=== PATIENT | male | born 1965 | race Caucasian/White ===

== ENCOUNTER 2017-12-07 15:04 | Emergency (ER) | payer BC ==
[2017-12-07] MEDS ORDERED: Sodium Chloride 0.9% 1,000 ML IV ONE (15:29)
--- NOTE | 2017-12-07 15:39 | EDM.PDOC ---
ED HPI GENERAL MEDICAL PROBLEM - General Chief Complaint: ENT Problem Stated Complaint: THROAT HURTS Time Seen by Provider: 12/07/17 15:13 Source of Information: Reports: Patient History Limitations: Reports: No Limitations - History of Present Illness INITIAL COMMENTS - FREE TEXT/NARRATIVE: HISTORY AND PHYSICAL: History of present illness: Patient is a 52-year-old male who presents to the emergency room with complaints of throat pain. He states he had some pain to the back of his throat approximately one week ago and [facility]. At that time they did a strep screening which was negative, he received a prescription for a steroid and cough syrup. Since that time he has increased pain, swelling and difficulty eating. He believes he has an upset stomach from the medications he's been receiving as he has had some nausea and diarrhea. Denies fever, chills, abdominal pain. Over the past week he has had increased swelling and exudate from the left side of his throat. He states he has not been able to eat due to the pain and nausea. Believes he has lost "17 pounds" over the past week. Complains of fatigue and increased sleeping throughout the day. History of smoking (current smoker) and alcohol use. Review of systems: As per history of present illness and below otherwise all systems reviewed and negative. Past medical history: As per history of present illness and as reviewed below otherwise noncontributory. Surgical history: As per history of present illness and as reviewed below otherwise noncontributory. Social history: No reported history of drug or alcohol abuse. Family history: As per history of present illness and as reviewed below otherwise noncontributory. Physical exam: General: Well-developed and well-nourished 52-year-old male. Alert and oriented. Nontoxic appearing and in no acute distress. HEENT: Atraumatic, normocephalic, pupils reactive, negative for conjunctival pallor or scleral icterus, mucous membranes moist, moderate amount of exudate / granuloma tissue noted to the left side of the posterior oropharynx, no lymphadenopathy noted to the left cervical chain, nontender, trachea midline. Lungs: Clear to auscultation, breath sounds equal bilaterally, chest nontender. Heart: S1S2, regular, negative for clicks, rubs, or JVD. Abdomen: Soft, nondistended, nontender. Negative for masses or hepatosplenomegaly. Negative for costovertebral tenderness. Pelvis: Stable nontender. Genitourinary: Deferred. Rectal: Deferred. Extremities: Atraumatic, negative for cords or calf pain. Neurovascular unremarkable. Neuro: Awake, alert, oriented. Cranial nerves II through XII unremarkable. Cerebellum unremarkable. Motor and sensory unremarkable throughout. Exam nonfocal. The CT shows an enlarged heterogeneous left palatine tonsil without a discrete drainable tonsillar or peritonsillar fluid collection seen at this time. Enlarged left level [address] contact Dr[address] Julien to consult him on this case. He came down to talk with the patient. The patient does feel he can swallow pills effectively at home, he had taken 1 tab of a left over pill of Augmentin. He has not tried prescribed antibiotics as outpatient he would like to try this prior to being admitted. Dr. Julien supports this. Risks were explained to the patient and he is aware. Rocephin will be given here IV. Clindamycin prescribed for home. Clark 5/325mg (Disp #20) for home use. ENT referal. Patient denies any questions at this time. Diagnostics: CBC, CMP, blood cultures 2, CT of soft tissue neck Therapeutics: IV fluid, Rocephin, Solumedrol, Zofran, Toradol Impression: Tonsillitis Plan: 1. Please take the antibiotic as directed. 2. Clark 1-2 tabs every 4-6 hours as needed. This is a narcotic, so do not take while driving or needing to be functioning outside of the house. You may take ibuprofen for breakthrough pain. Zofran has been prescribed for nausea management. Small frequent sips of fluids to prevent dehydration 3. We reviewed signs and symptoms that would prompt her to come back to the emergency room, at any time please return for evaluation if you feel you are not improving. A referral to ENT has been given. Please follow-up Sunday with Dr. Godinez. Definitive disposition and diagnosis as appropriate pending reevaluation and review of above. Duration: Week(s): Location: Reports: Face Left Throat Pain Score (Numeric/FACES): 4 - Related Data Allergies Allergy/AdvReac Type Severity Reaction Status Date / Time bee pollen Allergy Swelling Verified 07/05/16 10:25 Home Meds: Home Meds Acetaminophen [Non-Aspirin Extra Strength] 12/07/17 [History] Amoxicillin/Potassium Clav [Amox-Clav 875-125 mg Tablet] 12/07/17 [History] Fluticasone Propionate [Flonase Allergy Relief] 12/07/17 [History] Ibuprofen 400 mg PRN 12/07/17 [History] Past Medical History - Past Health History Medical/Surgical History: Denies Medical/Surgical History Gastrointestinal History: Reports: Hemorrhoids Endocrine/Metabolic History: Reports: Obesity/BMI 30+ Dermatologic History: Reports: Eczema Other Dermatologic History: eczema to hands at present - Past Surgical History Head Surgeries/Procedures: Reports: None Social & Family History - Tobacco Use Smoking Status *Q: Current Every Day Smoker Packs/Tins Daily: 0.5 - Recreational Drug Use Recreational Drug Use: No Drug Use in Last 12 Months: No ED ROS ENT - Review of Systems Review Of Systems: ROS reveals no pertinent complaints other than HPI. ED EXAM, ENT - Physical Exam Exam: See Below (See dictation) Course - Vital Signs Last Recorded V/S: Last Vital Signs Temp 99.0 F 12/07/17 16:22 Pulse 76 12/07/17 16:22 Resp 18 12/07/17 16:22 BP 135/81 12/07/17 16:22 Pulse Ox 98 12/07/17 16:22 - Orders/Labs/Meds Orders: Active Orders 24 hr Category Date Time Status Soft Tissue Neck w Cont [CT] Stat Exams 12/07/17 15:29 Taken CULTURE BLOOD [BC] Stat Lab 12/07/17 15:39 Received CULTURE BLOOD [BC] Stat Lab 12/07/17 15:55 Received STREP SCRN A RAPID W CULT CONF [RM] Stat Lab 12/07/17 15:15 Ordered Blood Culture x2 Reflex Set [OM.PC] Stat Oth 12/07/17 15:29 Ordered Labs: Laboratory Tests 12/07/17 12/07/17 Range/Units 15:39 15:39 WBC 10.25 (4.0-11.0) K/uL RBC 5.27 (4.50-5.90) M/uL Hgb 16.4 (13.0-17.0) g/dL Hct 48.3 (38.0-50.0) % MCV 91.7 (80.0-98.0) fL MCH 31.1 (27.0-32.0) pg MCHC 34.0 (31.0-37.0) g/dL RDW Std Deviation 42.2 (28.0-62.0) fl RDW Coeff of [place] 13 (11.0-15.0) % Plt Count 287 (150-400) K/uL MPV 9.50 (7.40-12.00) fL Neut % (Auto) 68.3 (48.0-80.0) % Lymph % (Auto) 16.6 (16.0-40.0) % [place] % (Auto) 13.9 (0.0-15.0) % Eos % (Auto) 1.0 (0.0-7.0) % Baso % (Auto) 0.2 (0.0-1.5) % Neut # (Auto) 7.0 H (1.4-5.7) K/uL Lymph # (Auto) 1.7 (0.6-2.4) K/uL [place] # (Auto) 1.4 H (0.0-0.8) K/uL Eos # (Auto) 0.1 (0.0-0.7) K/uL Baso # (Auto) 0.0 (0.0-0.1) K/uL Nucleated RBC % 0.0 /100WBC Nucleated RBCs # 0 K/uL Sodium 142 (136-148) mmol/L Potassium 4.2 (3.5-5.1) mmol/L Chloride 106 (98-107) mmol/L Carbon Dioxide 27.3 (21.0-32.0) mmol/L BUN 13 (7.0-18.0) mg/dL Creatinine 1.2 (0.8-1.3) mg/dL Est Cr Clr Drug Dosing TNP Estimated GFR (MDRD) > 60.0 ml/min Glucose 103 (74-106) mg/dL Calcium 9.5 (8.5-10.1) mg/dL Total Bilirubin 0.3 (0.2-1.0) mg/dL AST 19 (15-37) IU/L ALT 21 (14-63) IU/L Alkaline Phosphatase 68 (46-116) U/L Total Protein 8.1 (6.4-8.2) g/dL Albumin 3.6 (3.4-5.0) g/dL Globulin 4.5 H (2.0-3.5) g/dL Albumin/Globulin Ratio 0.8 L (1.3-2.8) Meds: Medications Discontinued Medications Generic Name Dose Route Start Last Admin Trade Name Eladia PRN Reason Stop Dose Admin Sodium Chloride 1,000 mls @ 999 mls/hr 12/07/17 15:29 12/07/17 15:47 Normal Saline IV 12/07/17 16:29 999 mls/hr STAT ONE Administration Ceftriaxone Sodium/Dextrose 1 50 mls @ 100 mls/hr 12/07/17 18:13 12/07/17 18: 27 gm/ Premix IV 12/07/17 18:42 100 mls/hr ONETIME ONE Administration Iopamidol 80 ml 12/07/17 16:45 12/07/17 16:46 Isovue Multipack-370 (76%) IVPUSH 12/07/17 16:46 80 ml ONETIME STA Administration Ketorolac Tromethamine 30 mg 12/07/17 15:55 12/07/17 16:15 Toradol IVPUSH 12/07/17 15:56 30 mg ONETIME ONE Administration Methylprednisolone Sodium Succinate 125 mg 12/07/17 15:55 12/07/17 16:15 Solu-Medrol IVPUSH 12/07/17 15:56 125 mg ONETIME ONE Administration Ondansetron HCl 4 mg 12/07/17 15:55 12/07/17 16:15 Zofran IVPUSH 12/07/17 15:56 4 mg ONETIME ONE Administration Departure - Departure Time of Disposition: 18:55 Disposition: Home, Self-Care 01 Clinical Impression: Tonsillitis - Discharge Information Instructions: Tonsillitis, [id number] Referrals: PCP,None [Primary Care Provider] - Forms: ED Department Discharge Additional Instructions: My general discharge The following information is given to patients seen in the emergency department who are being discharged to home. This information is to outline your options for follow-up care. We provide all patients seen in our emergency department with a follow-up referral. The need for follow-up, as well as the timing and circumstances, are variable depending upon the specifics of your emergency department visit. If you don't have a primary care physician on staff, we will provide you with a referral. We always advise you to contact your personal physician following an emergency department visit to inform them of the circumstance of the visit and for follow-up with them and/or the need for any referrals to a consulting specialist. The emergency department will also refer you to a specialist when appropriate. This referral assures that you have the opportunity for follow-up care with a specialist. All of these measure are taken in an effort to provide you with optimal care, which includes your follow-up. Under all circumstances we always encourage you to contact your private physician who remains a resource for coordinating your care. When calling for follow-up care, please make the office aware that this follow-up is from your recent emergency room visit. If for any reason you are refused follow-up, please contact the [facility] Emergency Department at and asked to speak to the emergency department charge nurse. [facility] - ENT [address] [place] [id number] 1. Please take the antibiotic as directed. 2. Clark 1-2 tabs every 4-6 hours as needed. This is a narcotic, so do not take while driving or needing to be functioning outside of the hosue. You may take ibuprofen for breakthrough pain. Zofran has been prescribed for nausea management. Small frequent sips of fluids to prevent dehydration 3. We reviewed signs and symptoms that would prompt her to come back to the emergency room, at any time please return for evaluation if you feel you are not improving. A referral to ENT has been given. Please follow-up Sunday with Dr. Godinez. - My Orders Last 24 Hours: My Active Orders 12/07/17 15:15 STREP SCRN A RAPID W CULT CONF [RM] Stat 12/07/17 15:29 Soft Tissue Neck w Cont [CT] Stat Blood Culture x2 Reflex Set [OM.PC] Stat 12/07/17 15:39 CULTURE BLOOD [BC] Stat 12/07/17 15:55 CULTURE BLOOD [BC] Stat - Assessment/Plan Last 24 Hours: My Active Orders 12/07/17 15:15 STREP SCRN A RAPID W CULT CONF [RM] Stat 12/07/17 15:29 Soft Tissue Neck w Cont [CT] Stat Blood Culture x2 Reflex Set [OM.PC] Stat 12/07/17 15:39 CULTURE BLOOD [BC] Stat 12/07/17 15:55 CULTURE BLOOD [BC] Stat
[2017-12-07] MEDS ORDERED: Ondansetron 4 MG/2 ML SDV IVPUSH ONE (15:55)
[2017-12-07] MEDS ORDERED: methylPREDNISolone Sodium Succinate 125 MG/2 ML SDV IVPUSH ONE (15:55)
[2017-12-07] MEDS ORDERED: Ketorolac 30 MG/ML SDV IVPUSH ONE (15:55)
[2017-12-07 16:17] LABS: CHLORIDE,CL 106 mmol/L (98-107); SODIUM,NA 142 mmol/L (136-148)
[2017-12-07] MEDS ORDERED: Iopamidol 755 MG/ML 500 ML Multipack Bottle IVPUSH STA (16:45)
[2017-12-07] MEDS ORDERED: cefTRIAXone 1 GM in Premix Bag 1 BAG IV ONE (18:13)
[2017-12-07 19:10] VITALS: BP 131/81
--- NOTE | 2017-12-10 11:18 | CT ---
EXAM DATE: 12/07/17 PATIENT'S AGE: 52 Patient: RYAN REED Facility: [place], [place] Site . Site : [id number] Study: CT ST Neck [id number] 4:59:20 PM Ordering Physician: Doctor Novak Final Report: INDICATION: Left tonsillar abscess TECHNIQUE: CT soft tissue of the neck was acquired with IV contrast. COMPARISON: None available FINDINGS: The left palatine tonsil is asymmetrically enlarged and mildly heterogeneous, demonstrating ill-defined foci of decreased attenuation suggestive of mild edematous/phlegmonous changes, without a well-defined peripherally enhancing drainable collection seen at this time. There is mild stranding in the left parapharyngeal space. There is mild prominence of the adenoids for the patient` s age. The left piriform sinus is not aerated, possibly physiological. The larynx is patent. The parotid, submandibular, and sublingual glands are within normal limits. No discrete thyroid abnormalities seen. There are enlarged left level 2 lymph nodes measuring up to 1.4 centimeters in short axis. A borderline right level 2 lymph node is seen. Degenerative changes are seen in the cervical spine. An aberrant right subclavian artery is noted. IMPRESSION: An enlarged heterogeneous left palatine tonsil without a discrete drainable tonsillar or peritonsillar fluid collection seen at this time. Enlarged left level 2 lymph nodes. Dictated by Luis Enrique Pichardo MD @ 12/07/2017 5:40:42 PM Dictated by: Luis Enrique Pichardo MD @ 12/07/2017 17:40:51 (Electronic Signature) Report Signed by Proxy. PARK
== END 2017-12-07 19:07 | disposition home or self-care (01) ==
LOC: MW.ED 15:04
DX: J03.90 Acute tonsillitis, unspecified (principal); F17.210 Nicotine dependence, cigarettes, uncomplicated; Z91.030 Bee allergy status
CPT/HCPCS: 70491; 80053; 85025; 87040; 96361; 96365; 96375; 99284; J0696; J1885; J2405; J2930; J7040; Q9967